=== PATIENT | male | born 1950 | race Caucasian/White ===

== ENCOUNTER 2019-03-15 16:59 | Inpatient (IN) | payer MEDICARE, SELFPAY ==
[2019-03-15] VITALS (15 sets, daily range): BP systolic 144–163; BP diastolic 75–92; PULSE 90–105; RESP 18–33; TEMP 36.2–36.6; O2SAT 87–97; BMI 22.1
--- NOTE | ~2019-03-15 | CT_ITS ---
EXAMINATION: CT chest abdomen pelvis w con DATE: 03/17/2019 13:32 INDICATION: Pneumonia, abdominal pain, coughing TECHNIQUE: Transaxial computed tomographic images of the chest, abdomen, and pelvis were obtained aft er the administration of 100 cc of Omnipaque 350 intravenous contrast. The dose-length product (DLP) was 492.83 mGy-cm. Automated exposure control and iterative reconstruction technique were employed. COMPARISON: None FINDINGS: CHEST CT: There is severe emphysema. Multiple nodular and airspace opacities are present throughout the lungs, particularly in the mid and lower lung zones. There are trace pleural effusions. No pneumothorax is i dentified. No pathologically enlarged thoracic lymph nodes are identified. The heart size is normal. ABDOMEN/PELVIS CT: The liver, spleen, pancreas, gallbladder, and adrenal glands are normal. The kidneys are unremarkable . There is calcified atherosclerosis of the aorta and many of the other arteries. No pathologically e nlarged abdominal or pelvic lymph nodes are identified. Liquid stool is present in the colon to the l eft. There is a large left inguinal hernia containing a segment of nonobstructed sigmoid colon which extends into the scrotum. There is a moderate size left hydrocele. There is no free intraperitoneal g as or evidence of bowel obstruction. A small fat-containing umbilical hernia is present. There is mil d lumbar spondylosis. IMPRESSION: 1. Multifocal nodular and airspace opacities of the lungs, likely pneumonia. Recommend follow-up CT a fter appropriate therapy to document resolution as underlying malignancy could be obscured. 2. Severe emphysema. 3. Liquid stool throughout the colon, consistent with diarrhea. 4. Large left inguinal hernia containing nonobstructed sigmoid colon. Reviewed, dictated and finalized at location A. [employer] S[employer] HEALTH TECHNICIAN IMPRESSION: 1. Multifocal nodular and airspace opacities of the lungs, likely pneumonia. Re commend follow-up CT after appropriate therapy to document resolution as underl pipe malignancy could be obscured. 2. Severe emphysema. 3. Liquid stool throughout the colon, consistent with diarrhea. 4. Large left inguinal hernia containing nonobstructed sigmoid colon.
--- NOTE | ~2019-03-15 | XR_ITS ---
EXAMINATION: XR chest 2V DATE: 03/22/2019 07:48 INDICATION: Shortness of breath. Pneumonia. TECHNIQUE: Frontal and lateral views of the chest were obtained. COMPARISON: Chest 2 views 03/15/2019, chest CT 03/17/2019 FINDINGS: The lungs are hyperexpanded with lucencies and architectural distortion, consistent with em physema. There are airspace opacities in right lower lung zone and left mid and lower lung zones. No pleural effusion or pneumothorax. The heart size is normal. IMPRESSION: 1. Worsened airspace opacities in right lower lung zone and left mid and lower lung zones, consistent with pneumonia. 2. Severe emphysema. Reviewed, dictated and finalized at location A. [employer] SECRETARY
--- NOTE | ~2019-03-15 | XR_ITS ---
XR chest 2V 03/15/2019 18:32 Indication: Cough, weakness and fluid Procedure: 2 view chest Comparison: No prior studies for comparison. Findings: There is right middle and lower lobe airspace disease, compatible with pneumonia. Borderlin e heart size. There are severe emphysematous changes with upper lobe predominance. No pleural effusio n. No pneumothorax identified. Impression: 1: Patchy right basilar airspace disease, compatible with pneumonia. 2: Emphysema. Reviewed, dictated and finalized at location A. HER APPRENTICE Impression: 1: Patchy right basilar airspace disease, compatible with pneumonia. 2: Emphysema.
--- NOTE | 2019-03-15 17:39 | ED.URI ---
HPI - URI/Sore Throat General Chief Complaint: Upper Respiratory Infection Stated Complaint: cough/weak Time Seen by Provider: 03/15/19 17:38 Source: patient and family Mode of arrival: ambulatory Limitations: no limitations History of Present Illness HPI Narrative: The pt is a 68 y/o male who presents to the ED with c/o SOB and cough that began 1 week ago. The pt states that he has been feeling ill for the past week. He reports poor appetite, fever, chills, and N/V/D. Per pt's family member, the pt has been running a fever for the past 3 days and the highest it has gotten is 101.7F. He has vomited about 3 times this week and has been having diarrhea about 3-4 times per day, which he describes as liquid stool. The pt does not take any home medications besides vitamins. He smokes 1 cigarette per day and does not drink. His family member has been sick with the same sx and he did not received a flu shot this year. MD elicited complaint: cough and other (SOB) Onset (ago): week(s) (1) Context: sick contacts Associated symptoms: fever, chills, nausea, vomiting, diarrhea and other (poor appetite) Related Data Home Medications Medication Instructions Recorded Confirmed No Home Medications 03/15/19 03/15/19 Allergies Allergy/AdvReac Type Severity Reaction Status Date / Time grass pollen Allergy Unknown Verified 03/15/19 17:13 mold Allergy Unknown Verified 03/15/19 17:13 ragweed pollen Allergy Unknown Verified 03/15/19 17:13 Review of Systems Review of Systems: All systems reviewed & are unremarkable except as noted in HPI and below Constitutional: Constitutional: Reports chills, Reports fever(s) and Reports poor appetite Respiratory: Respiratory: Reports cough and Reports dyspnea Gastrointestinal: Gastrointestinal: Reports diarrhea, Reports nausea and Reports vomiting PMFSH Past Medical History Medical History (Updated 03/15/19 @ 19:46 by Tonya Ang MD) Healthy adult Surgical History Surgical History (Updated 03/15/19 @ 17:58 by Chen Culver) No pertinent past surgical history Social History Social History (Updated 03/15/19 @ 17:59 by Chen Culver) Smoking status: Light tobacco smoker Alcohol intake: never Gender identity (if verbalized by the patient): Male Course Consultations Consultation #1: Discussed case with Patricia Prado PA-C to Hospitalist. Accepted admission. Date: 03/15/19 Time: 18:46 Vital Signs Vital signs: Vital Signs Temperature 36.4 C 03/15/19 17:05 Pulse Rate 105 H 03/15/19 17:05 Respiratory Rate 19 03/15/19 17:05 Blood Pressure 145/92 H 03/15/19 17:05 Pulse Oximetry 87 L 03/15/19 17:05 Temperature 36.4 C 03/15/19 17:05 Pulse Rate 97 03/15/19 18:51 Respiratory Rate 30 H 03/15/19 18:51 Blood Pressure 144/87 H 03/15/19 18:51 Pulse Oximetry 93 03/15/19 18:51 MDM - URI/Sore Throat Lab Data Result diagrams: 03/15/19 18:13 03/15/19 18:13 Labs: Lab Results 03/15/19 03/15/19 03/15/19 Range/Units 18:13 18:13 18:13 WBC 22.8 H (4.5-10.0) K/mm3 RBC 4.71 (4.6-6.20) M/mm3 Hgb 14.0 (14.0-18.0) g/dL Hct 43.2 (42.0-52.0) % MCV 91.7 (80-100) fl MCH 29.7 (26-34) pg MCHC 32.4 (32-36) g/dl RDW 12.9 (11.5-14.5) % Plt Count 382 H (150-375) k/mm3 MPV 9.6 (7.4-10.4) fl Immature Gran % (Auto) Not Reportable Neut % (Auto) Not Reportable Lymph % (Auto) Not Reportable [place] % (Auto) Not Reportable Eos % (Auto) Not Reportable Baso % (Auto) Not Reportable Lymph # (Auto) Not Reportable [place] # (Auto) Not Reportable Eos # (Auto) Not Reportable Baso # (Auto) Not Reportable Abs Immat Gran (auto) Not Reportable Absolute Neuts (auto) Not Reportable Absolute Nucleated RBC Not Reportable Total Counted 100 Neutrophils % (Manual) 87 H (46-73) % Band Neutrophils % 10 H (0-6) % Lymphocytes
[2019-03-15 18:09] LABS: Base Excess ABG 4.6 mEq/l (+/-2.0); Fractional Inspired Oxygen 21 %; HCO3 ABG 28.2 mEq/l (22.0-26.0); Oxyhemoglobin 82.6 % THb (90.0-100.0); PCO2 ABG 38.4 mmHg (35.0-45.0); PO2 FiO2 Ratio Arterial Blood 2.08 %; Total Hemoglobin 14.7 g/dL (12.0-18.0); pH ABG 7.484 (7.350-7.450)
[2019-03-15 18:11] LABS: Device ROOM AIR; Oxygen Saturation ABG 83.2 % (95.0-100.0); PO2 ABG 43.7 mmHg (80.0-100.0); Site Drawn RIGHT BRACHIAL
[2019-03-15 18:19] LABS: Hematocrit 43.2 % (42.0-52.0); Mean Corpuscular HGB Conc 32.4 g/dl (32-36); Mean Corpuscular Hemoglobin 29.7 pg (26-34); Mean Corpuscular Volume 91.7 fl (80-100); Mean Platelet Volume 9.6 fl (7.4-10.4); Platelet Count Result 382 k/mm3 (150-375); Red Blood Count 4.71 M/mm3 (4.6-6.20); Red Cell Distribution Width 12.9 % (11.5-14.5); White Blood Count 22.8 K/mm3 (4.5-10.0)
--- NOTE | 2019-03-15 18:19 | PC.NURSE ---
PT TO XRAY VIA STRETCHER
[2019-03-15 18:32] LABS: Alanine Aminotransferase 62 U/L (4-50); Albumin Level 3.5 g/dL (3.5-5.1); Alkaline Phosphatase 136 U/L (38-126); Aspartate Amino Transferase 58 U/L (17-59); Bilirubin,Total 0.6 mg/dL (0.2-1.3); Blood Urea Nitrogen 27 mg/dL (9-20); Calcium 8.8 mg/dL (8.4-10.2); Carbon Dioxide 30 mmol/L (22-30); Chloride 96 mmol/L (98-107); Estimated CRCL calculation 65 ml/min; Estimated Glomerular Filt Rate > 60; Glucose 132 mg/dL (75-110); Lipase 144 U/L (23-300); Sodium 137 mmol/L (137-145)
[2019-03-15 18:36] LABS: Band Neutrophils Percent 10 % (0-6); Eosinophils Absolute Manual 0.22 K/mm3 (0.02-0.5); Eosinophils Percent Manual 1 % (0-4); Lymphocytes Absolute Manual 0.45 K/mm3 (1.1-4.5); Neutrophils Absolute Manual 22.11 K/mm3 (1.3-6.7); Neutrophils Percent Manual 87 % (46-73); Total Cells Counted 100
[2019-03-15] MEDS: KETOROLAC 30 MG/ML VIAL (*BKC) IV PUSH (18:50)
[2019-03-15] MEDS: SODIUM CHLORIDE 0.9% IV 1,000 ML 999 ML IV CONT (18:50)
[2019-03-15] MEDS: POTASSIUM CHLORIDE 20 MEQ PACKET (FOR LIQUID) 40 MEQ PO (20:53)
[2019-03-15] MEDS: OSELTAMIVIR PHOSPHATE 75 MG CAP PO (20:54)
--- NOTE | 2019-03-15 21:05 | PC.NURSE ---
This patient, Rowdy Hussein, was admitted to Medical Room 250-01. Patient/family oriented to hospital policies and general routines including ID bracelet, bed and alarms, visiting hours, pain management, procedures, bathroom and other care routines, personal items, smoking policy, room service/diet, and visiting hours. Valuables list has been completed. Information on how to activate the Rapid Response Team has been discussed. Patient/Family are encouraged to report perceived risks to care and to ask questions if they do not understand what they are told or what they should do.
[2019-03-16] VITALS (11 sets, daily range): BP systolic 151–159; BP diastolic 80–81; PULSE 62–116; RESP 16–24; TEMP 36.3–37; O2SAT 91–94
[2019-03-16] MEDS: ALBUTEROL SULFATE NEB 2.5 MG/0.5 ML INH 5 MG INHALATION ×4 (01:23→21:49)
--- NOTE | 2019-03-16 05:52 | PM.IMHP ---
H&P: HPI History of Present Illness Chief complaint: Shortness of breath Narrative: Date and time of patient contact: 03/16/2019 at 2:15 a.m. 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 The patient reports that his cough is productive of brown sputum. He has had a few episodes of post-tussive emesis. He has had loose bowels for the last 3 or 4 days with watery brown stools a couple of times a day. He has had decreased appetite. He finally agreed to come into the hospital today when he just had no energy. His son convinced him to come in for evaluation. When the patient arrived to the ER he was satting 87% on room air. He had his shortness of breath improved after of initiation of oxygen therapy. He has had intermittent sweats and chills. He has not had any recent ill contacts that he knows of. He denies chest pain or palpitations. He has had mild sore throat. Review of Systems Review of Systems: Narrative: Except as documented in the HPI, all other systems were reviewed and are negative. [facility] Past Medical History Medical History (Updated 03/16/19 @ 05:59 by Maria Zamora DO) Gait instability He reports is due to a botched lumbar puncture while he was in the Tobacco abuse disorder Surgical History Surgical History (Updated 03/16/19 @ 05:59 by Maria Zamora DO) History of ear surgery Left ear surgery with chronic hearing loss in the left ear Family History Family History (Updated 03/15/19 @ 21:37 by Idalia Hartman RN) Father Heart disease Social History Social History (Updated 03/16/19 @ 06:10 by Maria Zamora DO) Social History: The patient lives at home with his son who is in his 30s. He ambulates with assistance of a cane. He has worked at various jobs over the years. He reports that he smoked a pack of cigarettes per day but he is vague as to when he cut back on his smoking. It sounds as if the patient had quit smoking for about 10 years in then started smoking 1 cigarette a day for the last 10 or 11 years. He has not drank alcohol in years any is vague as to how much alcohol he did drink when he consumed alcohol on a regular basis. He denies any illicit substance use. Code status: Full code Primary care physician:None Years smoked: 48 Smoking status: Current every day smoker Tobacco type: cigarettes Second hand tobacco smoke exposure: No Alcohol intake: former Substance use: never Substance use type: does not use Living arrangements: with family Gender identity (if verbalized by the patient): Male Spiritual care concerns: No Agree to blood products: Yes Meds Home Medications and Allergies Home Medications Medication Instructions Recorded Confirmed Type No Home Medications 03/15/19 03/15/19 History Allergies Allergy/AdvReac Type Severity Reaction Status Date / Time grass pollen Allergy Unknown Verified 03/15/19 17:13 mold Allergy Unknown Verified 03/15/19 17:13 ragweed pollen Allergy Unknown Verified 03/15/19 17:13 Vital Signs Vital Signs - 24 hr 03/15/19 17:05 03/15/19 17:10 03/15/19 17:15 Temperature 97.6 F Pulse Rate 105 H 104 H 104 H Respiratory Rate 19 19 22 H Blood Pressure 145/92 H Pulse Oximetry 87 L 96 95 03/15/19 17:30 03/15/19 17:46 03/15/19 18:03 Temperature Pulse Rate Respiratory Rate Blood Pressure Pulse Oximetry 96 95 95 03/15/19 18:46 03/15/19 18:51 03/15/19 19:00 Temperature Pulse Rate 105 H 97 99 Respiratory Rate 33 H 30 H 22 H Blood Pressure 144/87 H 148/79 H Pulse Oximetry 96 93 95 03/15/19 19:01 03/15/19 19:16 03/15/19 19:30 Temperature Pulse Rate 99 97 90 Respiratory Rate 26 H 27 H 30 H Blood Pressure P
[2019-03-16 05:59] LABS: Basophils Percent Auto 0.2 % (0.2-1.2); Eosinophils Absolute Auto 0.1 K/mm3 (0-0.3); Eosinophils Percent Auto 0.5 % (0-4.4); Hematocrit 39.2 % (42.0-52.0); Hemoglobin 12.3 g/dL (14.0-18.0); Immature Granulocyte Absolute 1.04 K/mm3 (0.00-0.031); Immature Granulocyte Percent A 6.2 % (0-0.5); Mean Corpuscular HGB Conc 31.4 g/dl (32-36); Mean Corpuscular Volume 92.5 fl (80-100); Mean Platelet Volume 9.4 fl (7.4-10.4); Monocytes Absolute Auto 0.6 K/mm3 (0.1-0.6); Monocytes Percent Auto 3.4 % (2.6-8.5); Neutrophils Absolute Auto 13.4 K/mm3 (1.3-6.7); Neutrophils Percent Auto 80.7 % (45.5-73.1); Platelet Count Result 341 k/mm3 (150-375); Red Blood Count 4.24 M/mm3 (4.6-6.20); Red Cell Distribution Width 13.1 % (11.5-14.5); White Blood Count 16.7 K/mm3 (4.5-10.0)
[2019-03-16 06:14] LABS: Magnesium 2.8 mg/dL (1.6-2.3)
[2019-03-16 06:17] LABS: Blood Urea Nitrogen 22 mg/dL (9-20); Carbon Dioxide 31 mmol/L (22-30); Chloride 97 mmol/L (98-107); Estimated CRCL calculation 69 ml/min; Estimated Glomerular Filt Rate > 60; Glucose 102 mg/dL (75-110); Sodium 136 mmol/L (137-145)
[2019-03-16] MEDS: POTASSIUM CHLORIDE 20 MEQ TABLET 80 MEQ PO (06:32)
[2019-03-16] MEDS: IPRATROPIUM BR 0.02% INH SOLN 0.5 MG/2.5 ML VIAL INHALATION ×3 (08:02→21:49)
[2019-03-16] MEDS: ENOXAPARIN 40 MG/0.4 ML SYRINGE SUB-Q (08:32)
[2019-03-16] MEDS: OSELTAMIVIR PHOSPHATE 75 MG CAP PO ×2 (08:32→20:47)
[2019-03-16] MEDS: predniSONE 20 MG TABLET 60 MG PO (08:32)
--- NOTE | 2019-03-16 16:10 | PM.IMPN ---
Progress Note: A&P Assessment and Plan (1) Community acquired pneumonia: Qualifiers: Laterality: right Lung location: lower lobe of lung Qualified Code(s): J18.9 - Pneumonia, unspecified organism Code(s): J18.9 - Pneumonia, unspecified organism Status: Acute Assessment and Plan: Influenza A positive in the ED. CXR shows patchy right basilar airspace disease compatible with pneumonia. Likely secondary to bacterial infection following influenza virus. He has been started on antibiotic therapy with azithromycin, rocephin, and vancomycin. Continue bronchodilator therapy with duo nebs. Supplemental O2 as needed, wean as tolerated to keep O2 saturations > 90%. (2) Influenza A: Code(s): J10.1 - Influenza due to other identified influenza virus with other respiratory manifestations Status: Acute Assessment and Plan: See above. He was taken off isolation precautions due to the fact that his symptoms began over a week ago. Started on antiviral therapy with Tamiflu due to his concomitant CAP. See above. (3) Acute respiratory failure with hypoxia: Code(s): J96.01 - Acute respiratory failure with hypoxia Status: Acute Assessment and Plan: Secondary to above. CXR shows emphysema and due to his smoking history, COPD is likely. He has not been diagnosed with COPD in the past, in fact has not sought medical care since the 1970s. Discussed establishing care with a PCP, recommend outpatient function testing. (4) Acute hypokalemia: Code(s): E87.6 - Hypokalemia Status: Acute Assessment and Plan: Improved. Potassium 3.0 and replaced orally this morning. Recheck in AM. Check magnesium. (5) DVT prophylaxis: Code(s): Z29.9 - Encounter for prophylactic measures, unspecified Status: Acute Assessment and Plan: Lovenox. Subjective Date/time seen: 03/16/19 1530 Interval history: Mr. Hussein is a 68yo M admitted with acute respiratory failure secondary to influenza A and pneumonia. He reports feeling maybe slightly better than yesterday, but continues with shortness of breath and significant productive cough. He reports xavier brown thick sputum. He has tolerated some PO intake without nausea or vomiting. No chest pain or calf tenderness. Review of Systems Review of Systems: Narrative: Twelve systems were reviewed with pertinent positives and negatives as per HPI. Exam Narrative: Exam Narrative: General: Male resting supine in bed in no acute distress. HEENT: Normocephalic, EOMI, oral mucosa moist. Cardiovascular: Rate and rhythm regular.. Respiratory: Diffuse inspiratory expiratory wheezing and rhonchi throughout all arenas. Significant productive cough noted on exam. Tolerating 2 L O2 nasal cannula. Respirations are even and nonlabored, however he does become short of breath after a set him up to listen to his back, but not in any radha respiratory distress. Abdomen: Soft, non-tender, non-distended, bowel sounds present. Extremities: Peripheral pulses intact. No edema, erythema, or pain to palpation. Neuro: No focal neurological deficits. Speech is clear. Objective Data Vital Signs Vital Signs: Last Vital Signs Temp 98.6 F 03/16/19 14:00 Pulse 116 H 03/16/19 14:24 Resp 18 03/16/19 14:24 BP 155/81 H 03/16/19 14:00 Pulse Ox 93 03/16/19 14:00 Intake/Output Intake/Output: Intake & Output 03/13/19 03/14/19 03/15/19 03/16/19 23:59 23:59 23:59 23:59 Intake Total 1300 1400 Output Total 900 Balance 1300 500 Meds/Results Medications: Active Medications Generic Name Dose Route Start Last Admin Trade Name Freq PRN Reason Stop Dose Admin Acetaminophen 650 mg 03/16/19 05:49 Tylenol Tablet PO Q4H PRN Fever or pain 1-3 Albuterol 5 mg 03/15/19 20:00
[2019-03-17] VITALS (12 sets, daily range): BP systolic 136–151; BP diastolic 61–89; PULSE 77–116; RESP 16–24; TEMP 36.1–36.6; O2SAT 90–96
[2019-03-17] MEDS: IPRATROPIUM BR 0.02% INH SOLN 0.5 MG/2.5 ML VIAL INHALATION ×4 (03:02→20:14)
[2019-03-17] MEDS: ALBUTEROL SULFATE NEB 2.5 MG/0.5 ML INH 5 MG INHALATION ×2 (03:03→09:31)
[2019-03-17 05:42] LABS: Basophils Percent Auto 0.4 % (0.2-1.2); Eosinophils Percent Auto 0.2 % (0-4.4); Hematocrit 36.7 % (42.0-52.0); Hemoglobin 11.6 g/dL (14.0-18.0); Immature Granulocyte Absolute 0.58 K/mm3 (0.00-0.031); Immature Granulocyte Percent A 6.3 % (0-0.5); Lymphocytes Absolute Auto 1.87 K/mm3 (0.9-3.2); Lymphocytes Percent Auto 20.2 % (18.3-44.2); Mean Corpuscular HGB Conc 31.6 g/dl (32-36); Mean Corpuscular Hemoglobin 29.3 pg (26-34); Mean Corpuscular Volume 92.7 fl (80-100); Mean Platelet Volume 9.3 fl (7.4-10.4); Monocytes Absolute Auto 0.6 K/mm3 (0.1-0.6); Monocytes Percent Auto 6.5 % (2.6-8.5); Neutrophils Absolute Auto 6.2 K/mm3 (1.3-6.7); Neutrophils Percent Auto 66.4 % (45.5-73.1); Platelet Count Result 348 k/mm3 (150-375); Red Blood Count 3.96 M/mm3 (4.6-6.20); Red Cell Distribution Width 13.1 % (11.5-14.5); White Blood Count 9.3 K/mm3 (4.5-10.0)
[2019-03-17 05:54] LABS: Alanine Aminotransferase 45 U/L (4-50); Albumin Level 2.9 g/dL (3.5-5.1); Alkaline Phosphatase 105 U/L (38-126); Aspartate Amino Transferase 57 U/L (17-59); Bilirubin,Total 0.3 mg/dL (0.2-1.3); Blood Urea Nitrogen 15 mg/dL (9-20); Calcium 8.1 mg/dL (8.4-10.2); Carbon Dioxide 31 mmol/L (22-30); Chloride 98 mmol/L (98-107); Estimated CRCL calculation 77 ml/min; Estimated Glomerular Filt Rate > 60; Glucose 114 mg/dL (75-110); Magnesium 2.7 mg/dL (1.6-2.3); Phosphorus 2.7 mg/dL (2.5-4.5); Sodium 137 mmol/L (137-145)
[2019-03-17] MEDS: predniSONE 20 MG TABLET 60 MG PO (08:51)
[2019-03-17] MEDS: OSELTAMIVIR PHOSPHATE 75 MG CAP PO ×2 (08:51→20:26)
[2019-03-17] MEDS: POTASSIUM CHLORIDE 20 MEQ TABLET 60 MEQ PO (08:51)
[2019-03-17] MEDS: ENOXAPARIN 40 MG/0.4 ML SYRINGE SUB-Q (08:52)
--- NOTE | 2019-03-17 09:33 | PM.IMPN ---
Progress Note: A&P Assessment and Plan (1) Community acquired pneumonia: Qualifiers: Laterality: right Lung location: lower lobe of lung Qualified Code(s): J18.9 - Pneumonia, unspecified organism Code(s): J18.9 - Pneumonia, unspecified organism Status: Acute Assessment and Plan: Influenza A positive in the ED. Imaging shows multiple nodular and airspace opacities throughout the lungs. Likely secondary to bacterial infection following influenza virus. He has been started on antibiotic therapy with azithromycin, rocephin, and vancomycin. Continue bronchodilator therapy with duo nebs. Added Pulmozyme and chest physiotherapy. Supplemental O2 as needed, wean as tolerated to keep O2 saturations > 90%. Blood cultures and sputum cultures pending with no growth to date. Collect Legionella and pneumococcal urine antigens. (2) Influenza A: Code(s): J10.1 - Influenza due to other identified influenza virus with other respiratory manifestations Status: Acute Assessment and Plan: See above. He was taken off isolation precautions due to the fact that his symptoms began over a week ago. Started on antiviral therapy with Tamiflu due to his concomitant CAP. See above. (3) Acute respiratory failure with hypoxia: Code(s): J96.01 - Acute respiratory failure with hypoxia Status: Acute Assessment and Plan: Secondary to above. Recommend repeat CT chest after discharge. (4) Emphysema lung: Qualifiers: Emphysema type: unspecified Qualified Code(s): J43.9 - Emphysema, unspecified Code(s): J43.9 - Emphysema, unspecified Status: Acute Assessment and Plan: Imaging shows emphysema and due to his smoking history, COPD is likely. He has not been diagnosed with COPD in the past, in fact reports has not sought medical care since the . Discussed establishing care with a PCP, recommend outpatient function testing. Continue oral prednisone and taper as clinically appropriate. (5) Acute hypokalemia: Code(s): E87.6 - Hypokalemia Status: Acute Assessment and Plan: Improved. Potassium 3.0 and replaced orally this morning. Up to 3.7 this afternoon, recheck in AM. (6) DVT prophylaxis: Code(s): Z29.9 - Encounter for prophylactic measures, unspecified Status: Acute Assessment and Plan: Lovenox. Subjective Date/time seen: 03/17/19 09:15 Interval history: Mr. Hussein is a 68yo M admitted with acute respiratory failure secondary to influenza A and pneumonia. He reports not feeling really any better than yesterday. He continues with shortness of breath and significant productive cough. He has tolerated a bit of PO intake without nausea or vomiting. He continues with diarrhea today and told me his last BM this morning was dark. He denies noticing any red blood in stool. He has been dealing with diarrhea for quite some time . He reports abdominal pain with coughing. He denies any chest pain or calf tenderness. Review of Systems Review of Systems: Narrative: Twelve systems were reviewed with pertinent positives and negatives as per HPI. Exam Narrative: Exam Narrative: General: Male resting supine in bed in no acute distress. HEENT: Normocephalic, EOMI, oral mucosa moist. Cardiovascular: Rate and rhythm regular. Respiratory: Diffuse inspiratory expiratory wheezing and rhonchi throughout all arenas. Significant productive cough noted on exam. Tolerating 2 L O2 nasal cannula. Respirations are even and slightly labored. Abdomen: Soft, non-tender, non-distended, bowel sounds present. Extremities: Peripheral pulses intact. No edema, erythema, or pain to palpation. Neuro: No focal neurological deficits. Speech is clear. Objective Data Vital Signs Vital Sig
[2019-03-17 13:09] LABS: Potassium 3.7 mmol/L (3.4-5.0)
[2019-03-17] MEDS: DORNASE ALFA INH SOLN 1 MG/ML 2.5 ML AMP 2.5 MG INHALATION (20:14)
[2019-03-18] VITALS (14 sets, daily range): BP systolic 137–158; BP diastolic 77–82; PULSE 80–115; RESP 16–20; TEMP 36.2–36.3; O2SAT 89–94
[2019-03-18] MEDS: IPRATROPIUM BR 0.02% INH SOLN 0.5 MG/2.5 ML VIAL INHALATION ×4 (02:19→21:08)
[2019-03-18] MEDS: DORNASE ALFA INH SOLN 1 MG/ML 2.5 ML AMP 2.5 MG INHALATION ×2 (07:15→21:09)
[2019-03-18 08:10] LABS: Hematocrit 38.3 % (42.0-52.0); Hemoglobin 12.2 g/dL (14.0-18.0); Mean Corpuscular HGB Conc 31.9 g/dl (32-36); Mean Corpuscular Hemoglobin 29.5 pg (26-34); Mean Corpuscular Volume 92.7 fl (80-100); Platelet Count Result 348 k/mm3 (150-375); Red Blood Count 4.13 M/mm3 (4.6-6.20); White Blood Count 8.3 K/mm3 (4.5-10.0)
[2019-03-18 08:20] LABS: Blood Urea Nitrogen 15 mg/dL (9-20); Calcium 8.1 mg/dL (8.4-10.2); Carbon Dioxide 32 mmol/L (22-30); Chloride 97 mmol/L (98-107); Estimated CRCL calculation 77 ml/min; Estimated Glomerular Filt Rate > 60; Glucose 99 mg/dL (75-110); Potassium 3.5 mmol/L (3.4-5.0); Sodium 135 mmol/L (137-145)
[2019-03-18] MEDS: predniSONE 20 MG TABLET 60 MG PO (08:30)
[2019-03-18] MEDS: ENOXAPARIN 40 MG/0.4 ML SYRINGE SUB-Q (08:31)
[2019-03-18] MEDS: OSELTAMIVIR PHOSPHATE 75 MG CAP PO ×2 (08:31→20:21)
[2019-03-18 08:59] LABS: Vancomycin Trough 7.3 ug/mL (10.0-20.0)
[2019-03-18 14:27] LABS: IFOB Positive Control Positive; Immunochemical Fecal Occult Bl Negative (N)
--- NOTE | 2019-03-18 16:06 | PM.IMPN ---
Progress Note: A&P Assessment and Plan (1) Community acquired pneumonia: Qualifiers: Laterality: right Lung location: lower lobe of lung Qualified Code(s): J18.9 - Pneumonia, unspecified organism Code(s): J18.9 - Pneumonia, unspecified organism Status: Acute Assessment and Plan: Influenza A positive in the ED. Imaging shows multiple nodular and airspace opacities throughout the lungs. Likely secondary to bacterial infection following influenza virus. He has been started on antibiotic therapy with azithromycin, rocephin, and vancomycin. Continue bronchodilator therapy with duo nebs. Added Pulmozyme and chest physiotherapy. Supplemental O2 as needed, wean as tolerated to keep O2 saturations > 90%. One time dose of IV Lasix today. Blood cultures and sputum cultures pending with no growth to date. Legionella and pneumococcal urine antigens pending. Dr. Cantu consulted - appreciate recommendations. (2) Influenza A: Code(s): J10.1 - Influenza due to other identified influenza virus with other respiratory manifestations Status: Acute Assessment and Plan: See above. He was taken off isolation precautions due to the fact that his symptoms began over a week ago. Started on antiviral therapy with Tamiflu due to his concomitant CAP. See above. (3) Acute respiratory failure with hypoxia: Code(s): J96.01 - Acute respiratory failure with hypoxia Status: Acute Assessment and Plan: Secondary to above. Recommend repeat CT chest after discharge. (4) Emphysema lung: Qualifiers: Emphysema type: unspecified Qualified Code(s): J43.9 - Emphysema, unspecified Code(s): J43.9 - Emphysema, unspecified Status: Acute Assessment and Plan: Imaging shows emphysema and due to his smoking history, COPD is likely. He has not been diagnosed with COPD in the past, in fact reports has not sought medical care since the 1970s. Discussed establishing care with a PCP, recommend outpatient pulmonary function testing. Continue oral prednisone and taper. Started Symbicort. (5) Acute hypokalemia: Code(s): E87.6 - Hypokalemia Status: Acute Assessment and Plan: Improved. (6) DVT prophylaxis: Code(s): Z29.9 - Encounter for prophylactic measures, unspecified Status: Acute Assessment and Plan: Lovenox. Subjective Date/time seen: 03/18/19 1445 Interval history: Mr. Hussein is a 68yo M admitted with acute respiratory failure secondary to influenza A and pneumonia. He reports feeling may be slightly better than yesterday. He continues with shortness of breath and productive cough. He does note that the mucus he is coughing up is [place] now instead of brown, still thick. He denies any nausea or vomiting. Reports his belly pain is improved today. Last BM was this morning. He denies any chest pain or calf tenderness. Review of Systems Review of Systems: Narrative: Twelve systems were reviewed with pertinent positives and negatives as per HPI. Exam Narrative: Exam Narrative: General: Male resting supine in bed in no acute distress. HEENT: Normocephalic, EOMI, oral mucosa moist. Cardiovascular: Rate and rhythm regular. Respiratory: Audible diffuse expiratory wheezing, crackles in the right base. Tolerating 3 L O2 nasal cannula. Respirations are even and slightly labored. Abdomen: Soft, non-tender, non-distended, bowel sounds present. Extremities: Peripheral pulses intact. No edema, erythema, or pain to palpation. Neuro: No focal neurological deficits. Speech is clear. Objective Data Vital Signs Vital Signs: Last Vital Signs Temp 97.4 F L 03/18/19 14:00 Pulse 115 H 03/18/19 14:00 Resp 18 03/18/19 14:00 BP 158/77 H 03/18/19 14:00 Pulse Ox 91 02
[2019-03-18] MEDS: FUROSEMIDE INJ 40 MG/4 ML VIAL 20 MG IV PUSH (17:40)
[2019-03-19] VITALS (11 sets, daily range): BP systolic 139–158; BP diastolic 73–79; PULSE 84–110; RESP 18–22; TEMP 36.2–36.9; O2SAT 91–94
[2019-03-19] MEDS: IPRATROPIUM BR 0.02% INH SOLN 0.5 MG/2.5 ML VIAL INHALATION ×4 (02:57→20:21)
[2019-03-19 06:21] LABS: Blood Urea Nitrogen 13 mg/dL (9-20); Calcium 7.8 mg/dL (8.4-10.2); Carbon Dioxide 33 mmol/L (22-30); Chloride 98 mmol/L (98-107); Estimated CRCL calculation 87 ml/min; Estimated Glomerular Filt Rate > 60; Glucose 113 mg/dL (75-110); Potassium 3.5 mmol/L (3.4-5.0); Sodium 137 mmol/L (137-145)
[2019-03-19] MEDS: DORNASE ALFA INH SOLN 1 MG/ML 2.5 ML AMP 2.5 MG INHALATION ×2 (07:14→20:24)
[2019-03-19] MEDS: predniSONE 20 MG TABLET 60 MG PO (08:34)
[2019-03-19] MEDS: OSELTAMIVIR PHOSPHATE 75 MG CAP PO ×2 (08:34→21:09)
[2019-03-19] MEDS: ENOXAPARIN 40 MG/0.4 ML SYRINGE SUB-Q (08:35)
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
--- NOTE | 2019-03-19 16:10 | PM.IMPN ---
Progress Note: A&P Assessment and Plan (1) Community acquired pneumonia: Qualifiers: Laterality: right Lung location: lower lobe of lung Qualified Code(s): J18.9 - Pneumonia, unspecified organism Code(s): J18.9 - Pneumonia, unspecified organism Status: Acute Assessment and Plan: Influenza A positive in the ED. Imaging shows multiple nodular and airspace opacities throughout the lungs. Likely secondary to bacterial infection following influenza virus. He has been started on antibiotic therapy with azithromycin, rocephin, and vancomycin. Continue bronchodilator therapy with duo nebs. Added Pulmozyme and chest physiotherapy. Supplemental O2 as needed, wean as tolerated to keep O2 saturations > 90%. Blood cultures pending with no growth to date. Yeast isolated in sputum culture. Legionella and pneumococcal urine antigens pending. Dr. Cantu consulted - appreciate recommendations. (2) Influenza A: Code(s): J10.1 - Influenza due to other identified influenza virus with other respiratory manifestations Status: Acute Assessment and Plan: See above. He was taken off isolation precautions due to the fact that his symptoms began over a week ago. Started on antiviral therapy with Tamiflu due to his concomitant CAP. See above. (3) Acute respiratory failure with hypoxia: Code(s): J96.01 - Acute respiratory failure with hypoxia Status: Acute Assessment and Plan: Secondary to above. Recommend repeat CT chest after discharge. Echo in AM. (4) Emphysema lung: Qualifiers: Emphysema type: unspecified Qualified Code(s): J43.9 - Emphysema, unspecified Code(s): J43.9 - Emphysema, unspecified Status: Acute Assessment and Plan: Imaging shows emphysema and due to his smoking history, COPD is likely. He has not been diagnosed with COPD in the past, in fact reports has not sought medical care since the 1970s. Discussed establishing care with a PCP, recommend outpatient pulmonary function testing. Continue oral prednisone and taper. Started Symbicort. (5) Acute hypokalemia: Code(s): E87.6 - Hypokalemia Status: Acute Assessment and Plan: Improved. (6) DVT prophylaxis: Code(s): Z29.9 - Encounter for prophylactic measures, unspecified Status: Acute Assessment and Plan: Lovenox. Subjective Date/time seen: 03/19/19 1445 Interval history: Mr. Hussein is a 68yo M admitted with acute respiratory failure secondary to influenza A and pneumonia. He is feeling discouraged because he was feeling much better this morning after his 1st neb vest treatment and now feeling worse this afternoon. He reports he is not coughing up as much mucous as he was the first couple days. He does note that the mucus he is coughing up is [place] now instead of brown, still thick. He denies any nausea or vomiting. He denies any chest pain or calf tenderness. Exam Narrative: Exam Narrative: General: Male resting supine in bed in no acute distress. HEENT: Normocephalic, EOMI, oral mucosa moist. Cardiovascular: Rate and rhythm regular. Respiratory: Audible diffuse expiratory wheezing throughout all arenas. Deep breath illicits productive cough. Tolerating 3 L O2 nasal cannula. Respirations are even and slightly labored. Abdomen: Soft, non-tender, non-distended, bowel sounds present. Extremities: Peripheral pulses intact. No edema, erythema, or pain to palpation. Neuro: No focal neurological deficits. Speech is clear. Objective Data Vital Signs Vital Signs: Last Vital Signs Temp 98.5 F 03/19/19 14:00 Pulse 110 H 03/19/19 14:00 Resp 18 03/19/19 14:00 BP 144/73 H 03/19/19 14:00 Pulse Ox 93 03/19/19 14:00 Intake/Output Intake/Output: Intake & Output
[2019-03-19 21:12] LABS: Vancomycin Trough 8.9 ug/mL (10.0-20.0)
[2019-03-20] VITALS (11 sets, daily range): BP systolic 127–149; BP diastolic 77–86; PULSE 90–112; RESP 18–20; TEMP 36.2–36.3; O2SAT 91–94
--- NOTE | 2019-03-20 | ECHO_ITS ---
Patient Info Name: Rowdy Hussein Age: 68 years : 1950 Gender: Male Ht: 70 in Wt: 153 lbs BSA: 1.85 m2 HR: 92 bpm BP: 158 / 79 mmHg Heart Rhythm: Sinus Rhythm Technical Quality: Good Exam Date: 03/20/2019 12:20 PM Exam Location: [facility] Pulmonary Exam Room: [facility] Patient Status: Inpatient Admit Date: 03/15/2019 Staff Ordering Physician: Annie Cantu MD Insurance Marketing Specialist: Beth Payne RDCS Attending Provider: Marlen Baez PA-C Referring Physician: Pepe BOGGS; Exam Type: CA echo dop bubble study w con Study Info Indications - dang hypoxemia Complete two-dimensional, color flow and Doppler transthoracic echocardiogram is performed. Summary 1. Left ventricular systolic function is hyperdynamic, estimated at >70%. 2. The left ventricular diastolic function is normal. 3. Normal-appearing cardiac valves and normal Doppler examination. Left Ventricle Left ventricular chamber dimension is normal. Left ventricular systolic function is hyperdynamic, estimated at >70%. The left ventricular diastolic function is normal. Right Ventricle Right ventricular chamber dimension is normal. Left Atria Left atrial chamber dimension is normal. Right Atria Right atrial chamber dimension is normal. Aortic Valve The aortic valve is trileaflet. Pulmonic Valve The pulmonic valve is not well visualized. Mitral Valve The mitral valve has normal leaflets. Tricuspid Valve The tricuspid valve leaflets are normal. Pericardium/Pleural The pericardium appears normal. Aorta The aortic root size at the sinus of Valsalva is normal. Left Ventricular Outflow Tract Name Value Normal LVOT 2D LVOT Diameter 2.0 cm LVOT Doppler LVOT Peak Gradient 5 mmHg LVOT Mean Gradient 3 mmHg LVOT VTI 20 cm LVOT VTI/AV VTI Ratio 0.9 LVOT Stroke Volume 62 ml LVOT CO 16.2 l/min LVOT CI 8.8 l/min/m2 Pulmonic Valve Name Value Normal PV Doppler PV Peak Gradient 6 mmHg Mitral Valve Name Value Normal MV Doppler MV Decel Tama 233 cm/s2 MV PHT 57 ms MV Area (PHT) 3.8 cm2 4.0-5.0 MV Diastolic Function MV E Peak Velocity 46 cm/s MV A Peak Velocity 62 cm/s
[2019-03-20] MEDS: IPRATROPIUM BR 0.02% INH SOLN 0.5 MG/2.5 ML VIAL INHALATION ×4 (01:39→20:25)
[2019-03-20 06:42] LABS: Hematocrit 36.9 % (42.0-52.0); Hemoglobin 11.7 g/dL (14.0-18.0); Mean Corpuscular HGB Conc 31.7 g/dl (32-36); Mean Corpuscular Hemoglobin 29.2 pg (26-34); Mean Platelet Volume 8.8 fl (7.4-10.4); Platelet Count Result 415 k/mm3 (150-375); Red Blood Count 4.01 M/mm3 (4.6-6.20); Red Cell Distribution Width 12.5 % (11.5-14.5); White Blood Count 15.4 K/mm3 (4.5-10.0)
[2019-03-20 07:04] LABS: Blood Urea Nitrogen 18 mg/dL (9-20); Calcium 8.1 mg/dL (8.4-10.2); Carbon Dioxide 33 mmol/L (22-30); Chloride 96 mmol/L (98-107); Estimated CRCL calculation 87 ml/min; Estimated Glomerular Filt Rate > 60; Glucose 93 mg/dL (75-110); Magnesium 2.4 mg/dL (1.6-2.3); Potassium 3.4 mmol/L (3.4-5.0); Sodium 135 mmol/L (137-145)
[2019-03-20] MEDS: predniSONE 20 MG TABLET 60 MG PO (09:19)
[2019-03-20] MEDS: ENOXAPARIN 40 MG/0.4 ML SYRINGE SUB-Q (09:20)
[2019-03-20] MEDS: DORNASE ALFA INH SOLN 1 MG/ML 2.5 ML AMP 2.5 MG INHALATION ×2 (09:24→20:20)
[2019-03-20] MEDS: OSELTAMIVIR PHOSPHATE 75 MG CAP PO ×2 (11:10→21:40)
--- NOTE | 2019-03-20 11:12 | PM.IMPN ---
Progress Note: A&P Assessment and Plan (1) Community acquired pneumonia: Qualifiers: Laterality: right Lung location: lower lobe of lung Qualified Code(s): J18.9 - Pneumonia, unspecified organism Code(s): J18.9 - Pneumonia, unspecified organism Status: Acute Assessment and Plan: Influenza A positive in the ED. Imaging shows multiple nodular and airspace opacities throughout the lungs. Likely secondary to bacterial infection following influenza virus. Continue antibiotic therapy with azithromycin, rocephin, and vancomycin to cover for the most common pathogens to cause pneumonia following the flu. Continue bronchodilator therapy with duo nebs. Added Pulmozyme and chest physiotherapy. Supplemental O2 as needed, wean as tolerated to keep O2 saturations > 90%. Plan for home O2 eval when closer to discharge. Blood cultures pending with no growth to date. Yeast isolated in sputum culture. Legionella and pneumococcal urine antigens pending. Echo today. Dr. Cantu consulted - appreciate recommendations. (2) Influenza A: Code(s): J10.1 - Influenza due to other identified influenza virus with other respiratory manifestations Status: Acute Assessment and Plan: See above. He was taken off isolation precautions due to the fact that his symptoms began over a week ago. Started on antiviral therapy with Tamiflu due to his concomitant CAP. See above. Today is day 5 of Tamiflu. (3) Acute respiratory failure with hypoxia: Code(s): J96.01 - Acute respiratory failure with hypoxia Status: Acute Assessment and Plan: Secondary to above. Recommend repeat CT chest after discharge as underlying malignancy cannot be excluded. Echo today. (4) Emphysema lung: Qualifiers: Emphysema type: unspecified Qualified Code(s): J43.9 - Emphysema, unspecified Code(s): J43.9 - Emphysema, unspecified Status: Acute Assessment and Plan: Imaging shows emphysema and due to his smoking history, COPD is likely. He has not been diagnosed with COPD in the past, in fact reports has not sought medical care since the 1970s. Discussed establishing care with a PCP, recommend outpatient pulmonary function testing. Appreciate Dr. Cantu's input. Continue oral prednisone and taper. Leukocytosis noted today is likely secondary to steroids. Started Symbicort. (5) Acute hypokalemia: Code(s): E87.6 - Hypokalemia Status: Acute Assessment and Plan: Improved. (6) DVT prophylaxis: Code(s): Z29.9 - Encounter for prophylactic measures, unspecified Status: Acute Assessment and Plan: Lovenox. Subjective Date/time seen: 03/20/19 0945 Interval history: Mr. Hussein is a 68yo M admitted with acute respiratory failure secondary to influenza A and pneumonia. He tells me he is feeling worse than yesterday. He is discouraged. In the 1st few days, he was coughing up a lot of thick xavier mucus. Now he feels like he has mucus he needs to cough but he is not able to. He reports some chest wall tenderness which he attributes to his significant coughing. He is tolerating oral intake without nausea vomiting. Review of Systems Review of Systems: Narrative: Twelve systems were reviewed with pertinent positives and negatives as per HPI. Exam Narrative: Exam Narrative: General: Male resting supine in bed in no acute distress. HEENT: Normocephalic, EOMI, oral mucosa moist. Cardiovascular: Rate and rhythm regular. Respiratory: Audible diffuse expiratory wheezing and auscultated throughout all arenas. Deep breath illicits productive cough. Tolerating 3 L O2 nasal cannula. Respirations are even and slightly labored at rest. Abdomen: Soft, non-tender, non-distended, bowel sounds present. Extremities: Perip
--- NOTE | 2019-03-20 18:04 | PM.PNPUL ---
Progress Note: A&P Assessment and Plan (1) Influenza A: Code(s): J10.1 - Influenza due to other identified influenza virus with other respiratory manifestations Status: Acute Assessment and Plan: Documented on ED charting. He is on Tamiflu for 5 days although his symptoms were present longer than 48 hours. (2) Acute respiratory failure with hypoxia: Code(s): J96.01 - Acute respiratory failure with hypoxia Status: Acute Assessment and Plan: He was admitted with hypoxemia currently is on 3 L a minute with adequate saturation 93%. he has been a long-time smoker and may have had some hypoxemia at baseline. We will continue to wean oxygen and have a home oxygen evaluation prior to discharge. he will benefit by having pulmonary function test 6-8 weeks after discharge. Will need an echo to estimate pulmonary artery pressures with the severe emphysema and hypoxemia. (3) Community acquired pneumonia: Qualifiers: Laterality: right Lung location: lower lobe of lung Qualified Code(s): J18.9 - Pneumonia, unspecified organism Code(s): J18.9 - Pneumonia, unspecified organism Status: Acute Assessment and Plan: He has developed infiltrates on his chest x-ray following influenza. Cultures so far are unrevealing. He had light growth of yeast which is probably a colonizer. he remains on broad coverage for bacterial pathogens that are commonly seen after influenza. The influenza microbe destroys the protective mechanisms that the airway has to prevent bacterial infection. Little airway cilia are destroyed, leaving the airway at risk for a bacterial pathogen to set up shop, multiple and take over. This is why getting a flu vaccination matters, not just to prevent flu but to avoid getting the post-influenza bacterial pneumonia that can be fatal. Will need repeat CT chest 6 weeks from now to assure that there is no malignancy obscured by the infitlrates. (4) Emphysema lung: Qualifiers: Emphysema type: unspecified Qualified Code(s): J43.9 - Emphysema, unspecified Code(s): J43.9 - Emphysema, unspecified Status: Acute Assessment and Plan: Severe emphysema is noted on the chest CT. This is a new diagnosis for the patient although he has smoked for many years. He is currently on Symbicort which is a good medicine for his COPD, nebulized Pulmozyme for secretions, bronchodilator with beta agonist and ipratropium. PFTs 6-8 weeks after discharge, COPD meds on discharge, stop smoking, evaluate for cardiopulmonary rehab. Check alpha-1 antitrypsin level and phenotype. (5) Tobacco abuse disorder: Code(s): Z72.0 - Tobacco use Status: Acute Assessment and Plan: Has a 46 year history of smoking, some at 4 ppd, most at much less, started again 10 years ago at 1 cig per day. Really important to stop now with hypoxemia, pnumonia, chronic cough with sputum. Subjective Date/time seen: 03/20/19 18:04 This 68 yo man is seen in follow up for influenza with post-influenza pneumonia, acute respiratory failure, COPD. Review of Systems ENT: Reports nasal congestion Cardiovascular: Cardiovascular: Reports leg edema Respiratory: Respiratory: Reports cough and Reports wheezing Gastrointestinal: Gastrointestinal: Reports no additional gastrointestinal complaints Allergic/Immunologic: Allergic/Immunologic: Reports wheezing Exam Narrative: Exam Narrative: Uses a cane to walk. Const: General: no acute distress HENMT: Mouth: Yes dry mucous membranes Other: decreased hearing; poor dentition; no erythema or exudate in the oropharynx. Eyes: Pupils: Equal, round and reactive pupils present Nec
[2019-03-21] VITALS (12 sets, daily range): BP systolic 142–164; BP diastolic 81–83; PULSE 70–111; RESP 18–20; TEMP 36–36.4; O2SAT 93–96
[2019-03-21] MEDS: IPRATROPIUM BR 0.02% INH SOLN 0.5 MG/2.5 ML VIAL INHALATION ×4 (02:14→19:21)
--- NOTE | 2019-03-21 02:18 | PCRCNOTE ---
Window of time for administration has passed. See next scheduled administration.
--- NOTE | 2019-03-21 02:20 | PCRCNOTE ---
Window of time for administration has passed. See next scheduled administration.
[2019-03-21 05:41] LABS: Basophils Percent Auto 0.3 % (0.2-1.2); Hematocrit 38.1 % (42.0-52.0); Hemoglobin 11.9 g/dL (14.0-18.0); Immature Granulocyte Absolute 0.98 K/mm3 (0.00-0.031); Immature Granulocyte Percent A 6.2 % (0-0.5); Lymphocytes Absolute Auto 0.92 K/mm3 (0.9-3.2); Lymphocytes Percent Auto 5.9 % (18.3-44.2); Mean Corpuscular HGB Conc 31.2 g/dl (32-36); Mean Corpuscular Hemoglobin 29.7 pg (26-34); Mean Platelet Volume 9.2 fl (7.4-10.4); Monocytes Absolute Auto 0.8 K/mm3 (0.1-0.6); Neutrophils Percent Auto 82.6 % (45.5-73.1); Platelet Count Result 443 k/mm3 (150-375); Red Blood Count 4.01 M/mm3 (4.6-6.20); Red Cell Distribution Width 12.6 % (11.5-14.5); White Blood Count 15.7 K/mm3 (4.5-10.0)
[2019-03-21 05:58] LABS: Blood Urea Nitrogen 16 mg/dL (9-20); Calcium 8.1 mg/dL (8.4-10.2); Carbon Dioxide 30 mmol/L (22-30); Chloride 102 mmol/L (98-107); Estimated CRCL calculation 77 ml/min; Estimated Glomerular Filt Rate > 60; Glucose 118 mg/dL (75-110); Magnesium 2.5 mg/dL (1.6-2.3); Phosphorus 3.3 mg/dL (2.5-4.5); Sodium 138 mmol/L (137-145)
--- NOTE | 2019-03-21 07:06 | PCRCNOTE ---
Disregard 03/21/19 0218 and 0220 notes entered by Rochelle Lester; treatment was administered.
[2019-03-21] MEDS: DORNASE ALFA INH SOLN 1 MG/ML 2.5 ML AMP 2.5 MG INHALATION ×2 (07:59→19:21)
[2019-03-21] MEDS: OSELTAMIVIR PHOSPHATE 75 MG CAP PO (08:41)
[2019-03-21] MEDS: ENOXAPARIN 40 MG/0.4 ML SYRINGE SUB-Q (08:41)
[2019-03-21] MEDS: predniSONE 20 MG TABLET 40 MG PO (08:41)
[2019-03-21 09:47] LABS: Vancomycin Trough 16.5 ug/mL (10.0-20.0)
--- NOTE | 2019-03-21 16:05 | PM.IMPN ---
Progress Note: A&P Assessment and Plan (1) Community acquired pneumonia: Qualifiers: Laterality: right Lung location: lower lobe of lung Qualified Code(s): J18.9 - Pneumonia, unspecified organism Code(s): J18.9 - Pneumonia, unspecified organism Status: Acute Assessment and Plan: -------improving with ceftriaxone, azithromycin and vancomycin. Influenza A positive in the ED, likely secondary to bacterial infection following influenza virus. Will continue bronchodilator therapy with duo nebs. Supplemental O2 as needed, wean as tolerated to keep O2 saturations > 90%. Plan for home O2 eval tomorrow. Blood cultures pending with no growth to date. Yeast isolated in sputum culture---thought to be contaminant. Legionella and pneumococcal urine antigens pending. Echo reviewed. Dr. Cantu consulted - appreciate recommendations. (2) Influenza A: Code(s): J10.1 - Influenza due to other identified influenza virus with other respiratory manifestations Status: Acute Assessment and Plan: -----See above. He was taken off isolation precautions due to the fact that his symptoms began over a week ago. Pt has finished tamiflu. (3) Acute respiratory failure with hypoxia: Code(s): J96.01 - Acute respiratory failure with hypoxia Status: Acute Assessment and Plan: -----Secondary to above. Recommend repeat CT chest after discharge as underlying malignancy cannot be excluded. (4) Emphysema lung: Qualifiers: Emphysema type: unspecified Qualified Code(s): J43.9 - Emphysema, unspecified Code(s): J43.9 - Emphysema, unspecified Status: Acute Assessment and Plan: -----Imaging shows emphysema and due to his smoking history, COPD is likely. He has not been diagnosed with COPD in the past, in fact reports has not sought medical care since the 1970s. Discussed establishing care with a PCP and outpatient pulmonary function testing. Appreciate Dr. Cantu's input. Continue oral prednisone and taper. Leukocytosis noted today is likely secondary to steroids as it was normal on admission. Started Symbicort. (5) Acute hypokalemia: Code(s): E87.6 - Hypokalemia Status: Acute Assessment and Plan: -----resolvd. (6) DVT prophylaxis: Code(s): Z29.9 - Encounter for prophylactic measures, unspecified Status: Acute Assessment and Plan: Lovenox. Time Spent With Patient Time with patient: 25 - 35 minutes Subjective Date/time seen: 03/21/19 16:05 Interval history: Pt is a 68-year-old male here for pneumonia post flu. Patient was seen today and states that he is coughing hard any has muscular chest pain when he coughs hard but overall feels better. He walked around the halls in did not feel like he was short of breath. He does not usually wear oxygen at home. He denies nausea, vomiting, fevers, chills, abdominal pain, diarrhea, or constipation at this time. Review of Systems Review of Systems: All systems reviewed & are unremarkable except as noted in HPI and below Exam Narrative: Exam Narrative: General: Well developed well nourished patient resting comfortably in bed in NAD HEENT: normocephalic Neck: supple Neuro: Alert and oriented x4 CV:RRR Resp: Pretty clear to auscultation today with occasional rhonchi. He did have a significant cough on exam. Abd: Soft, non distended. No pain to palpation. Positive bowel sounds Extremities: No swelling, erythema, or pain to palpation. Objective Data Vital Signs Vital Signs: Vital Signs - 24 hr 03/20/19 20:26 03/20/19 20:36 03/20/19 21:32 Temperature Pulse Rate 105 H 106 H 105 H Respiratory Rate 18 18 18 Blood Pressure Pulse Oximetry 93 03/20/19 22:00 03/21/19 02:15 03/21/19 02:21 Temperature 97.2 F L Pulse Rate 112 H 91 92 Respiratory Rate 20 18 18 Blood Pressure 149/77 H Pulse Oximetry 91 03/21/19 06:00 02
--- NOTE | 2019-03-21 19:26 | PM.PNPUL ---
Progress Note: A&P Assessment and Plan (1) Influenza A: Code(s): J10.1 - Influenza due to other identified influenza virus with other respiratory manifestations Status: Acute Assessment and Plan: Documented on ED charting. He completed Tamiflu x 5 days. WBC still high 15.7K. (2) Acute respiratory failure with hypoxia: Code(s): J96.01 - Acute respiratory failure with hypoxia Status: Acute Assessment and Plan: He was admitted with hypoxemia currently is on 2 L a minute with adequate saturation 95%. Long history of smoking, may have had some hypoxemia at baseline. Continue to wean oxygen; Home oxygen evaluation prior to discharge. PFTs 6-8 weeks after discharge. Echo normal. (3) Community acquired pneumonia: Qualifiers: Laterality: right Lung location: lower lobe of lung Qualified Code(s): J18.9 - Pneumonia, unspecified organism Code(s): J18.9 - Pneumonia, unspecified organism Status: Acute Assessment and Plan: He has developed infiltrates on his chest x-ray following influenza. Cultures negative. Light growth of yeast in sputum, probably a colonizer. Broad coverage for bacterial pathogens that are commonly seen after influenza. Will need repeat CT chest 6 weeks from now to assure that there is no malignancy obscured by the infiltrates. (4) Emphysema lung: Qualifiers: Emphysema type: unspecified Qualified Code(s): J43.9 - Emphysema, unspecified Code(s): J43.9 - Emphysema, unspecified Status: Acute Assessment and Plan: Severe emphysema is noted on the chest CT, new diagnosis for the patient although he has smoked for many years. He is currently on Symbicort which is a good medicine for his COPD, nebulized Pulmozyme for secretions, bronchodilator with beta agonist and ipratropium. PFTs 6-8 weeks after discharge, COPD meds on discharge, stop smoking, evaluate for cardiopulmonary rehab. Check alpha-1 antitrypsin level and phenotype. (5) Tobacco abuse disorder: Code(s): Z72.0 - Tobacco use Status: Acute Assessment and Plan: Has a 46 year history of smoking, some at 4 ppd, most at much less, started again 10 years ago at 1 cig per day. Really important to stop now with hypoxemia, pnumonia, chronic cough with sputum. Subjective Date/time seen: 03/21/19 19:26 Interval history: This 68 yo male here for pneumonia after influenza. Has coughing, overall feels better. He walked in the halls, now on 2 L/min. He could go home on this if he is stable tomorrow, and he could try to wean off at home. He has not used O2 before, has not seen a doctor in years. O2 decreased to 2 L/min today, was 3 L with sat 91-95%. Has sore abdominal muscles from coughing. He son will be here to visit tomorrow afternoon. Review of Systems ENT: Reports nasal congestion Cardiovascular: Cardiovascular: Reports leg edema Respiratory: Respiratory: Reports cough and Reports wheezing Gastrointestinal: Gastrointestinal: Reports no additional gastrointestinal complaints Allergic/Immunologic: Allergic/Immunologic: Reports wheezing Exam Narrative: Exam Narrative: Uses a cane to walk. Const: General: no acute distress HENMT: Mouth: Yes dry mucous membranes Other: decreased hearing; poor dentition; no erythema or exudate in the oropharynx. Eyes: Pupils: Equal, round and reactive pupils present Neck: Lymphatic: lymphadenopathy not noted Resp: Auscultation: crackles (bases) bilateral and diminished lung sounds Other: hyperinflated chest Cardio: Rate: regular rate Rhythm: regular rhythm GI: Auscultation: normal bowel sounds Skin: General skin exam: normal color
[2019-03-22] VITALS (10 sets, daily range): BP systolic 150; BP diastolic 76; PULSE 93–122; RESP 18–20; TEMP 36.1; O2SAT 90–94
[2019-03-22] MEDS: IPRATROPIUM BR 0.02% INH SOLN 0.5 MG/2.5 ML VIAL INHALATION ×3 (01:18→13:50)
[2019-03-22 06:15] LABS: Blood Urea Nitrogen 19 mg/dL (9-20); Calcium 8.3 mg/dL (8.4-10.2); Carbon Dioxide 30 mmol/L (22-30); Chloride 102 mmol/L (98-107); Estimated CRCL calculation 77 ml/min; Estimated Glomerular Filt Rate > 60; Glucose 90 mg/dL (75-110); Potassium 4.1 mmol/L (3.4-5.0); Sodium 138 mmol/L (137-145)
[2019-03-22] MEDS: DORNASE ALFA INH SOLN 1 MG/ML 2.5 ML AMP 2.5 MG INHALATION (08:07)
[2019-03-22] MEDS: ENOXAPARIN 40 MG/0.4 ML SYRINGE SUB-Q (10:23)
[2019-03-22] MEDS: predniSONE 20 MG TABLET 40 MG PO (10:23)
--- NOTE | 2019-03-22 11:38 | PCNWS ---
Weekly nutritional screen. Patient is tolerating current diet with adequate intake. No weight loss reported. No nutritional needs at this time.
--- NOTE | 2019-03-22 12:40 | PCRCNOTE ---
HOME O2 EVAL COMPLETE, NO REQUIREMENTS
--- NOTE | 2019-03-22 13:30 | PM.PNPUL ---
Progress Note: A&P Assessment and Plan (1) Influenza A: Code(s): J10.1 - Influenza due to other identified influenza virus with other respiratory manifestations Status: Acute Assessment and Plan: Documented on ED charting. He completed Tamiflu x 5 days. WBC was high yesterday 15.7K. He is stable to go home today, can f/u in office in 1-2 weeks, chest CT scan in 8 weeks to r/o lung cancer. Symbicort 160/4.5 TWO puffs twice a day, rinse and spit, has 2 spacers. 2 samples Symbicort. Do not smoke, and avoid 2nd hand smoke. d/w Mi Lopez PA-C (2) Acute respiratory failure with hypoxia: Code(s): J96.01 - Acute respiratory failure with hypoxia Status: Acute Assessment and Plan: He was admitted with hypoxemia currently is on 2 L a minute with adequate saturation 95%. Long history of smoking, may have had some hypoxemia at baseline. Continue to wean oxygen; Home oxygen evaluation prior to discharge. PFTs 6-8 weeks after discharge. Echo normal. (3) Community acquired pneumonia: Qualifiers: Laterality: right Lung location: lower lobe of lung Qualified Code(s): J18.9 - Pneumonia, unspecified organism Code(s): J18.9 - Pneumonia, unspecified organism Status: Acute Assessment and Plan: He has developed infiltrates on his chest x-ray following influenza. Cultures negative. Light growth of yeast in sputum, probably a colonizer. Broad coverage for bacterial pathogens that are commonly seen after influenza. Will need repeat CT chest 6 weeks from now to assure that there is no malignancy obscured by the infiltrates. (4) Emphysema lung: Qualifiers: Emphysema type: unspecified Qualified Code(s): J43.9 - Emphysema, unspecified Code(s): J43.9 - Emphysema, unspecified Status: Acute Assessment and Plan: Severe emphysema is noted on the chest CT, new diagnosis for the patient although he has smoked for many years. He is currently on Symbicort which is a good medicine for his COPD, nebulized Pulmozyme for secretions, bronchodilator with beta agonist and ipratropium. PFTs 6-8 weeks after discharge, COPD meds on discharge, stop smoking, evaluate for cardiopulmonary rehab. Check alpha-1 antitrypsin level and phenotype. (5) Tobacco abuse disorder: Code(s): Z72.0 - Tobacco use Status: Acute Assessment and Plan: Has a 46 year history of smoking, some at 4 ppd, most at much less, started again 10 years ago at 1 cig per day. Really important to stop now with hypoxemia, pnumonia, chronic cough with sputum. Subjective Date/time seen: 03/22/19 13:30 Interval history: This 68 yo male here for pneumonia after influenza. He feels better, passed the Home O2 evaluation. Does not need supplemental O2. Just finished a nebulized treatment with increased wheezing afterwards. Son is here. Review of Systems ENT: Reports nasal congestion Respiratory: Respiratory: Reports cough and Reports wheezing (diffuse wheezing after albuterol and ipratropium nebulized) Gastrointestinal: Gastrointestinal: Reports no additional gastrointestinal complaints Allergic/Immunologic: Allergic/Immunologic: Reports wheezing Exam Narrative: Exam Narrative: Uses a cane to walk. Const: General: no acute distress HENMT: Mouth: Yes dry mucous membranes Other: decreased hearing; poor dentition; no erythema or exudate in the oropharynx. Eyes: Pupils: Equal, round and reactive pupils present Neck: Lymphatic: lymphadenopathy not noted Resp: Auscultation: crackles (bases) bilateral, wheezes and diminished lung sounds Other: hyperinflated chest Cardio: Rate: regular rate Rhythm: regular r
--- NOTE | 2019-03-22 13:40 | PM.DS ---
DS: Diagnosis Admitting Diagnosis Admitting Diagnosis: Acute respiratory failure with hypoxia Discharge Diagnosis (1) Community acquired pneumonia: Qualifiers: Laterality: right Lung location: lower lobe of lung Qualified Code(s): J18.9 - Pneumonia, unspecified organism Code(s): J18.9 - Pneumonia, unspecified organism Status: Acute Assessment and Plan: -------Pt finished a course of antibiotics while hospitalized of ceftriaxone, azithromycin and vancomycin. Influenza A positive in the ED, likely secondary to bacterial infection following influenza virus. Patient was given an albuterol inhaler at discharge. He did a home oxygen evaluation and did not require any oxygen at rest or with activity. Blood cultures pending with no growth to date. Yeast isolated in sputum culture---thought to be contaminant. Legionella and pneumococcal urine antigens negative. (2) Influenza A: Code(s): J10.1 - Influenza due to other identified influenza virus with other respiratory manifestations Status: Acute Assessment and Plan: -----See above. Pt has finished tamiflu. (3) Acute respiratory failure with hypoxia: Code(s): J96.01 - Acute respiratory failure with hypoxia Status: Acute Assessment and Plan: -----Secondary to above. Recommend repeat CT chest after discharge as underlying malignancy cannot be excluded. Patient plans to follow up with Dr. Cantu for this (4) Emphysema lung: Qualifiers: Emphysema type: unspecified Qualified Code(s): J43.9 - Emphysema, unspecified Code(s): J43.9 - Emphysema, unspecified Status: Acute Assessment and Plan: -----Imaging shows emphysema and due to his smoking history, COPD is likely. He has not been diagnosed with COPD in the past, in fact reports has not sought medical care since the 1970s. Discussed establishing care with a PCP and outpatient pulmonary function testing. Started Symbicort. (5) Acute hypokalemia: Code(s): E87.6 - Hypokalemia Status: Acute Assessment and Plan: -----resolved. (6) DVT prophylaxis: Code(s): Z29.9 - Encounter for prophylactic measures, unspecified Status: Acute DS: Summary Hospital Course Reason for hospitalization: Pneumonia Hospital Course: Patient is a 68-year-old male who presented emergency room on March 15, 2019 for shortness of breath and cough that has been going on for 1 week. Patient reports flu-like symptoms the week prior and a temperature up to 101.7. He has had nausea and vomiting and some liquid stools. Patient was seen in the ER in his vitals were temperature 36.4?, pulse 105, respiratory rate 19, blood pressure 145/92, pulse ox 87 on room air. White blood cell count was 22.8. Sodium 137, potassium 3.0, chloride 96, carbon dioxide 30, BUN 27, creatinine 1.0. Chest x-ray showed patchy right basilar airspace disease compatible with pneumonia and emphysema. He was also positive for influenza a in the ER. Patient was admitted to the hospitalist service started on ceftriaxone, azithromycin, and vancomycin as well as Tamiflu. The patient required oxygen therapy for the majority of his stay. As he improved from pneumonia, he was able to be weaned off oxygen. He did see the critical care nurse and consult who has set up a follow-up outpatient and started him on COPD medications such as Symbicort and albuterol. A CT of the chest was done which showed the pneumonia and severe emphysema. The patient was tachycardic but this was thought to be due to breathing treatments and severe lung disease. His hypoxia improved with the treatment of pneumonia and a home oxygen evaluation showed he did not need oxygen with activity or at rest. PE seems less likely since the patient improved with therapy and had no lower extremity swelling or signs and symptoms of blood clots. Wells score 1.5 which is a low risk of PE. O
--- NOTE | 2019-03-22 14:09 | PCCCNOTE ---
On 03/22/19, the student, [Aiyana Morales ], provided care and completed [facility] documentation on this patient. I have reviewed the student's documentation and agree with the findings.
[2019-03-22 17:05] LABS: Legionella pneumophila Ag Ur Not Detected (Not Detected)
[2019-03-22 20:41] LABS: Pneumococcal Antigen Urine Not Detected (Not Detected)
[2019-03-23 21:14] LABS: Alpha-1-Antitrypsin, QN 222 mg/dL (83-199)
== END 2019-03-22 14:49 | disposition home or self-care (01) | DRG 193 ==
LOC: ANHED 19:53 → ANH2MED 20:04
PROVIDERS: Internal Medicine; Internal Medicine Critical Care Medicine; Physician Assistant; Admitting Provider Family Medicine; Emergency Provider Emergency Medicine; Visit Provider Physician Assistant
DX: J11.00 Influenza due to unidentified influenza virus with unspecified type of pneumonia (principal); J96.01 Acute respiratory failure with hypoxia; J43.9 Emphysema, unspecified; E87.6 Hypokalemia; Z87.891 Personal history of nicotine dependence
CPT/HCPCS: 36415; 36600; 71046; 71260; 74177; 80048; 80053; 80202; 82103; 82274; 82805; 83690; 83735; 84100; 84132; 85025; 85027; 87040; 87045; 87046; 87070; 87205; 87427; 87449; 87804; 87899; 94618; 94640; 94668; 94669; 96361; 96365; 96367; 96375; 99285; A9270; C8929; J0456; J0696; J1650; J1885; J1940; J3370; J7030; J7512; Q9967